=== PATIENT | female | born 1990 | race Caucasian/White ===

== ENCOUNTER 2019-04-07 17:40 | Emergency (ER) | payer MEDICAID ==
[~2019-04-07] VITALS: Ht 165.1 cm; Wt 62.6 kg
[2019-04-07 17:40] VITALS: BP_SYST 120
--- NOTE | 2019-04-07 17:40 | NUR ---
BROUGHT IN BY [facility], PLACED IN BED #2 AND TRIAGED. REPORT GIVEN TO RADHA
--- NOTE | 2019-04-07 17:50 | NUR ---
Patient brought in by ambulance in the ED c/o flu-like symptoms and numbness and tingling on both hands - Patient's already taking Tamiflu. Denied any recent trauma or falls. Denied any chest pain, SOB or dizziness. Patient is alert and oriented x4, respirations even and unlabored, speaking in full sentences, and ambulating with a steady gait. VSS, pain level 0/10. Informed of the wait time. Instructed to notify ED staff for any changes in condition or worsening of symptoms. Patient verbalized understanding.
--- NOTE | 2019-04-07 17:52 | NUR ---
Flu swab done as ordered by Dr. Gonzalez. Patient tolerated the procedure well.
--- NOTE | 2019-04-07 18:06 | NUR ---
ER Dr. Gonzalez at bedside examining patient.
[2019-04-07] MEDS ORDERED: LORazepam 1 MG TABLET PO ONE (18:15)
--- NOTE | 2019-04-07 18:23 | NUR ---
Administered Ativan 2mg PO as ordered by Dr. Gonzalez. Patient tolerated the medications well.
[2019-04-07 18:53] VITALS: BP_SYST 129
--- NOTE | 2019-04-07 18:53 | NUR ---
Patient given written and verbal discharge instructions and verbalizes understanding. ER MD discussed with patient the results and treatment provided. Patient in stable condition. ID arm band removed. No Rx given. Patient educated on pain management and to follow up with PMD. Pain Scale 0/10. Opportunity for questions provided and answered. Medication side effect fact sheet provided.
== END 2019-04-07 18:53 | disposition home or self-care (01) ==
LOC: SED 17:40
DX: F41.9 Anxiety disorder, unspecified (principal)
CPT/HCPCS: 99283